=== PATIENT | male | born 1990 | race Hispanic/Latino ===

== ENCOUNTER 2019-12-04 15:59 | Emergency (ER) | payer BC, SELFPAY ==
--- NOTE | ~2019-12-04 | XR_ITS ---
EXAMINATION: XR knee RT min 4V DATE: 12/04/2019 16:52 INDICATION: Right knee pain TECHNIQUE: Five views of the right knee were obtained. COMPARISON: None. FINDINGS: Alignment is normal. No fracture or osteochondral lesion. Joint spaces are normal with no e rosions. No joint effusion/synovitis. There is mild anterior soft tissue swelling. IMPRESSION: 1. Soft tissue swelling without acute osseous abnormality. Reviewed, dictated and finalized at location A.
[2019-12-04 16:01] VITALS: BP 140/94; PULSE 87; RESP 16; TEMP 36.6; O2SAT 99
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
[2019-12-04] MEDS: IBUPROFEN 400 MG TABLET 600 MG PO (17:05)
== END 2019-12-04 17:22 | disposition home or self-care (01) ==
PROVIDERS: Emergency Provider Nurse Practitioner Family; PCP Emergency Medicine
DX: S40.812A Abrasion of left upper arm, initial encounter (principal); S40.811A Abrasion of right upper arm, initial encounter; S80.212A Abrasion, left knee, initial encounter; S80.211A Abrasion, right knee, initial encounter; V28.4XXA Motorcycle driver injured in noncollision transport accident in traffic accident, initial encounter; E78.00 Pure hypercholesterolemia, unspecified
CPT/HCPCS: 73564; 99213; A9270; G0463